=== PATIENT | female | born 1960 | race Caucasian/White ===

== ENCOUNTER 2017-10-13 00:11 | Inpatient (IN) | payer BC ==
[2017-10-13] VITALS (7 sets, daily range): BP systolic 125–138; BP diastolic 55–78; Ht 157.5 cm; Wt 93.0 kg
[~2017-10-13] VITALS: Ht 157.5 cm; Wt 93.0 kg
[2017-10-13 02:53] LABS: BASOPHIL % 0.6 % (0-2); PLATELET COUNT 231 x10^3mcL (130-400); RED CELL DISTRIBUTION WIDTH 11.7 % (11.5-14.5)
[2017-10-13 03:01] LABS: CALCIUM 8.5 mg/dL (8.5-10.1); CARBON DIOXIDE 28.8 mmol/L (21-32); CHLORIDE SERUM 101 mmol/L (98-107); CREATININE SERUM 0.6 mg/dL (0.6-1.0); GFR1 > 60 mL/min; GLUCOSE SERUM 210 mg/dL (74-106); POTASSIUM SERUM 3.6 mmol/L (3.5-5.1); SODIUM SERUM 137 mmol/L (136-145)
[2017-10-13 03:05] LABS: ALBUMIN 3.2 g/dL (3.4-5.0); ALKALINE PHOSPHATASE 112 U/L (46-116); ALT/SGPT 44 U/L (14-59); AST/SGOT 33 U/L (15-37); BILIRUBIN TOTAL 0.34 mg/dL (0.20-1.00); TOTAL PROTEIN, SERUM 7.6 g/dL (6.4-8.2)
[2017-10-13] MEDS ORDERED: METFORMIN HYDR500 M1 PO ×2 (04:41→11:20)
[2017-10-13] MEDS ORDERED: GLUCOTROL5 MG PO (04:42)
[2017-10-13] MEDS ORDERED: LOSARTAN POTASS50 M1 PO (04:42)
[2017-10-13 11:17] LABS: microscopic required? NO
[2017-10-13 12:07] LABS: UA SPECIFIC GRAVITY 1.025 (1.005-1.035); urine erythrocyte NEGATIVE (NEGATIVE)
[2017-10-13 12:53] LABS: AMPHETAMINE QUAL UR NONE DETECTED (See below)
[2017-10-13 13:29] LABS: T3 TOTAL 1.35 ng/mL
[2017-10-13 14:26] LABS: CHOLESTEROL/HDL RATIO 3.7; PHOSPHOROUS 4.2 mg/dL (2.5-4.9)
[2017-10-13 14:29] LABS: FREE T4 1.07 ng/dL (0.76-1.46); FREE THYROXINE INDEX 2.8 ug/dL (1.4-4.5); T4(THYROXINE) 8.9 ug/dL (4.7-13.3)
[2017-10-14 05:10] VITALS: BP 130/62
[2017-10-14 07:28] LABS: BASOPHIL % 0.4 % (0-2); PLATELET COUNT 209 x10^3mcL (130-400); RED CELL DISTRIBUTION WIDTH 13.1 % (11.5-14.5)
[2017-10-14 07:31] LABS: CALCIUM 8.2 mg/dL (8.5-10.1); CARBON DIOXIDE 27.1 mmol/L (21-32); CHLORIDE SERUM 105 mmol/L (98-107); CREATININE SERUM 0.5 mg/dL (0.6-1.0); GFR1 > 60 mL/min; GLUCOSE SERUM 159 mg/dL (74-106); PHOSPHOROUS 4.1 mg/dL (2.5-4.9); POTASSIUM SERUM 3.8 mmol/L (3.5-5.1); SODIUM SERUM 138 mmol/L (136-145)
[2017-10-14 09:38] VITALS: BP 130/59
[2017-10-14 14:11] VITALS: BP 133/64
[2017-10-14 14:59] VITALS: BP 133/64
== END 2017-10-14 15:42 | disposition home or self-care (01) | DRG 206 ==
LOC: ED 00:11 → DU 04:40
PROVIDERS: Emergency Medicine; Family Medicine
DX: M94.0 Chondrocostal junction syndrome [Tietze] (principal); E44.1 Mild protein-calorie malnutrition; I10 Essential (primary) hypertension; Z90.49 Acquired absence of other specified parts of digestive tract; Z83.3 Family history of diabetes mellitus; E11.65 Type 2 diabetes mellitus with hyperglycemia; F41.9 Anxiety disorder, unspecified
CPT/HCPCS: 82962; 83880; 84439; 85378; J7030; Q0092